=== PATIENT | female | born 1990 | race Caucasian/White ===

== ENCOUNTER 2018-08-06 12:51 | Outpatient (CLI) | payer OTHER ==
--- NOTE | 2018-08-06 14:36 | RAD ---
RIGHT ELBOW 4 VIEWS: HISTORY: Elbow pain. Russell's syndrome. Limited range of motion. FINDINGS: There is 2/3 shaft width posterior and shaft width lateral subluxation of the radial head in rela tion to the capitellum, with a relatively small anterior and lateral margin of the radial head. No a cute fracture, dislocation, or fluid distention of the joint capsule are apparent. 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 This could represent a congenital process, not known to be associated necessarily with Russell syndrome, or result of a remote injury. No acute osseous abnormalities are demonstrated. POS: [facility]
== END 2018-08-06 12:52 | disposition home or self-care (01) ==
LOC: BICRAD 12:51
PROVIDERS: ATTEND Nurse Practitioner Family
DX: M79.601 Pain in right arm (principal); S53.001A Unspecified subluxation of right radial head, initial encounter